=== PATIENT | male | born 1960 | race Caucasian/White ===

== ENCOUNTER → 2020-03-12 | Outpatient (CLI) | payer OTHER ==
--- NOTE | 2020-03-12 14:16 | RAD ---
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 No fracture or destructive lesion. Small ossicle developmental or degenerative between the trapezium and trapezoid projecting over the base of the second metacarpal. Electronically signed by: Fletcher Lantigua MD 03/12/2020 2:14 PM CDT
== END ==
LOC: RAD 10:44
PROVIDERS: ATTEND Registered Nurse General Practice
DX: M19.041 Primary osteoarthritis, right hand (principal); M89.9 Disorder of bone, unspecified